=== PATIENT | male | born 1970 | race Caucasian/White ===

== ENCOUNTER 2018-07-29 07:07 | Emergency (ER) | payer MEDICAID, OTHER ==
[~2018-07-29] VITALS: Ht 170.2 cm; Wt 68.0 kg
[2018-07-29 07:10] VITALS: BP 107/71; PULSE 62; RESP 16; Ht 170.2 cm; Wt 68.0 kg
[2018-07-29] MEDS ORDERED: KETOROLAC 15 MG INJ IM STA (07:38)
--- NOTE | 2018-07-29 07:43 | ERD ---
ER Documentation Chief Complaint Chief Complaint pt is bib self with c/o left arm pain and reddness near bicep area, x 3 day HPI 47-year-old male, [id number], works as a [employer], undomiciled, with history of chronic alcohol abuse presents to the ED complaining of pain and redness to his left upper arm. Patient reports he was running with his backpack 3 days ago and it slipped onto his arm sustaining an injury. Since then there is been increasing swelling, pain and redness. Denies any other injuries. No fevers or chills. ROS All systems reviewed and are negative except as per history of present illness. Allergies Allergies: Coded Allergies: No Known Allergy (Unverified , 07/29/18) PMhx/Soc Undomiciled Medical and Surgical Hx: pt denies Medical Hx, pt denies Surgical Hx History of Surgery: No Anesthesia Reaction: No Hx Neurological Disorder: No Hx Respiratory Disorders: No Hx Cardiac Disorders: No Hx Psychiatric Problems: No Hx Miscellaneous Medical Probl: No Hx Alcohol Use: Yes (Chronic alcohol abuse) Hx Substance Use: No Hx Tobacco Use: No Smoking Status: Current every day smoker FmHx No family history relevant to presenting complaint Physical Exam Vitals Vital Signs Date Temp Pulse Resp B/P (MAP) Pulse Ox O2 O2 Flow FiO2 Time Delivery Rate 07/29/18 98.3 62 16 107/71 98 07:10 (83) Physical Exam Const: No acute distress Head: Atraumatic Eyes: Normal Conjunctiva ENT: Normal External Ears, Nose and Mouth. Neck: Full range of motion. No meningismus. Resp: Clear to auscultation bilaterally Cardio: Regular rate and rhythm, no murmurs Abd: Soft, non tender, non distended. Normal bowel sounds Skin: No petechiae or rashes Back: No midline or flank tenderness Ext: Left upper extremity: Volar aspect proximal to the antecubital fossa 3 cm area of swelling, induration, warmth and tenderness. No fluctuance. No ascending lymphangitis. No lymphadenopathy. Neur: Awake and alert Psych: Normal Mood and Affect Results 24 hrs Current Medications Medications Dose Sig/Paul Start Time Status Last (Trade) Ordered Route PRN Stop Time Admin Dose Reason Admin Ketorolac 15 mg ONCE STAT 07/29/18 DC 07/29/18 Tromethamine IM 07:38 07:58 (Toradol) 07/29/18 07:39 Cefazolin 1 gm ONCE ONCE 07/29/18 DC 07/29/18 Sodium IM 08:00 08:15 (Ancef) 07/29/18 08:01 1 tab ONCE ONCE 07/29/18 DC 07/29/18 Trimethoprim/ PO 08:00 08:15 07/29/18 08:01 Sulfamethoxaz ole (Bactrim (Ds)) Procedures/MDM DOCUMENTS REVIEWED: ED nurse, no prior records IMAGING: Left humerus: No fracture, dislocation, soft tissue swelling, foreign body or subcutaneous emphysema. My interpretation. 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 Radiographs are negative for bony injury or soft tissue abnormality. Possible cellulitis but no fluctuance or signs of abscess, ascending lymphangitis or necrotizing fasciitis. Patient be treated with oral antibiotics including MRSA coverage pending follow-up. Stable for discharge with precautionary instructions and outpatient follow-up as counseled. Counseled patient regarding diagnostic workup, diagnosis and need for followup. Understands to return to ED if symptoms recur, worsen or any other concerns. Departure Diagnosis: Primary Impression: Pain of left arm Additional Impressions: Injury of upper extremity Encounter type: initial encounter Laterality: left Qualified Codes: S49.92XA - Unspecified injury of left shoulder and upper arm, initial encounter Cellulitis of left upper extremity Condition: Stable MAMTA SALINAS MD July 29, 2018 07:43
[2018-07-29] MEDS ORDERED: TRIMETHOPRIM/SULFAMETHOX (DS) TAB PO ONE (08:00)
[2018-07-29] MEDS ORDERED: CEFAZOLIN 1 GM INJ IM ONE (08:00)
[2018-07-29] MEDS ORDERED: SULF1TAB31 PO (08:41)
[2018-07-29] MEDS ORDERED: CEPH-443 PO (08:41)
[2018-07-29] MEDS ORDERED: IBUP-1542 PO (08:41)
== END 2018-07-29 09:22 | disposition home or self-care (01) ==
LOC: E/R 07:07
DX: S49.92XA Unspecified injury of left shoulder and upper arm, initial encounter (principal); F17.210 Nicotine dependence, cigarettes, uncomplicated; W18.40XA Slipping, tripping and stumbling without falling, unspecified, initial encounter; Y92.9 Unspecified place or not applicable
CPT/HCPCS: 73060; 96372; J0690; J1885; Z7502; Z7610